=== PATIENT | female | born 1945 | race African-American/Black ===

== ENCOUNTER 2018-11-27 14:57 | Inpatient (IN) | payer OTHER ==
[~2018-11-27] VITALS: Ht 167.6 cm; Wt 76.2 kg
[2018-11-27] MEDS ORDERED: IPRATROPIUM/ALBUTEROL 0.5-3(2.5)MG/3ML NEB HHN ONE (15:45)
[2018-11-27] MEDS: METHYLPREDNISOLONE SOD SUCC 125 MG/2 ML VIAL IV STA ×2 (16:13→17:12)
[2018-11-27] MEDS: SODIUM CHLORIDE 0.9% 1,000 ML IV ONE ×2 (16:13→17:12)
[2018-11-27] MEDS: LEVOFLOXACIN 750MG PREMIX 150 ML IV ONE ×2 (16:13→17:12)
[2018-11-27] MEDS: LORAZEPAM 2MG/ML CPJ IV ONE ×2 (16:13→17:12)
[2018-11-27 16:57] LABS: CHLORIDE 101 mEq/L (98-107); HEMATOCRIT. 28.3 % (36.0-48.0); HEMOGLOBIN. 9.1 g/dL (12.0-16.0); MEAN CORPUSCULAR HEMOGLOBIN 31.6 pg (28.0-32.0); MEAN CORPUSCULAR VOLUME 98.1 fL (81.0-99.0); MEAN PLATELET VOLUME 7.2 fl (7.4-10.4); PLATELET 583 x1000/uL (130-400); RED BLOOD CELL COUNT 2.88 mill/uL (4.2-5.4); RED CELL DISTRIBUTION WIDTH 16.7 % (11.6-14.6)
[2018-11-27 17:00] LABS: INR 1.1; PARTIAL THROMBOPLASTIN TIME 24.5 sec (23.4-31.0); PROTHROMBIN TIME 11.5 sec (9.1-11.1)
[2018-11-27 17:08] LABS: CLARITY URINE TURBID (CLEAR); COLOR URINE YELLOW (YELLOW); KETONES URINE TRACE (NEGATIVE); LEUKOCYTE ESTERASE URINE 3+ (NEGATIVE); NITRITE URINE NEGATIVE (NEGATIVE); OCCULT BLOOD URINE 2+ (NEGATIVE); PH URINE 5.5 (4.5-8.0); PROTEIN URINE 2+ (NEGATIVE); SPECIFIC GRAVITY URINE 1.017 (1.005-1.030); UROBILINOGEN URINE 0.2 E.U./dL (0.2-1.0)
[2018-11-27 17:26] LABS: PLATELET ESTIMATE INCREASED
[2018-11-27] MEDS ORDERED: LORAZEPAM 2MG/ML CPJ IV ONE (17:45)
[2018-11-27] MEDS ORDERED: PIPERACILLIN/TAZ 3.375G PREMIX 50 ML IV ONE (18:30)
[2018-11-27] MEDS ORDERED: VANCOMYCIN 1 G PREMIX 200 ML IV SCH (18:30)
[2018-11-27] MEDS ORDERED: SODIUM CHLORIDE 0.9% 1,000 ML IV ONE (18:43)
[2018-11-27 23:00] VITALS: BP 130/88
[2018-11-28] VITALS (11 sets, daily range): BP systolic 83–129; BP diastolic 49–85
[2018-11-28] MEDS ORDERED: DEXTROSE 50% WATER 50ML SYRINGE IV PRN (04:30)
[2018-11-28] MEDS ORDERED: NA PHOS,M-B/NA PHOS,DI-BA ENEMA 118ML PR PRN (04:30)
[2018-11-28] MEDS ORDERED: PIPERACILLIN/TAZ 3.375G PREMIX 50 ML IV SCH ×2 (04:30→06:00)
[2018-11-28] MEDS ORDERED: CLONIDINE 0.1MG TABLET PO PRN (04:30)
[2018-11-28] MEDS ORDERED: MAGNESIUM/ALUMINUM HYDROXIDE/SIMETHICONE 30ML UDC PO PRN (04:30)
[2018-11-28] MEDS ORDERED: GUAIFENESIN 200MG/10ML SUGAR FREE UDC PO PRN (04:30)
[2018-11-28] MEDS ORDERED: NITROGLYCERIN 0.4MG TABLET SL SL PRN (04:30)
[2018-11-28] MEDS ORDERED: DOCUSATE SODIUM 100MG CAPSULE PO PRN (04:30)
[2018-11-28] MEDS ORDERED: ONDANSETRON HCL 4MG/2ML INJ IV PRN (04:30)
[2018-11-28] MEDS ORDERED: IPRATROPIUM/ALBUTEROL 0.5-3(2.5)MG/3ML NEB INH PRN (04:30)
[2018-11-28] MEDS ORDERED: ACETAMINOPHEN 325MG TABLET PO PRN (04:30)
[2018-11-28] MEDS: SODIUM CHLORIDE 0.9% 1,000 ML IV SCH ×2 (06:03→18:50)
[2018-11-28] MEDS: BLOOD SUGAR DIAGNOSTIC STRIP TEST SCH ×4 (08:16→21:33)
[2018-11-28] MEDS ORDERED: LORAZEPAM 2MG/ML CPJ IV NR (08:45)
[2018-11-28 08:51] LABS: HEMATOCRIT. 26.8 % (36.0-48.0); HEMOGLOBIN. 8.7 g/dL (12.0-16.0); MEAN CORPUSCULAR HEMOGLOBIN 31.7 pg (28.0-32.0); MEAN CORPUSCULAR VOLUME 97.8 fL (81.0-99.0); MEAN PLATELET VOLUME 7.2 fl (7.4-10.4); PLATELET 553 x1000/uL (130-400); RED BLOOD CELL COUNT 2.73 mill/uL (4.2-5.4); RED CELL DISTRIBUTION WIDTH 16.8 % (11.6-14.6)
[2018-11-28] MEDS: ENOXAPARIN 40MG/0.4ML SYR SUBCUT SCH (09:00)
[2018-11-28 09:05] LABS: CHLORIDE 108 mEq/L (98-107)
[2018-11-28 09:12] LABS: LDL CHOLESTEROL 73 mg/dL (5-100)
[2018-11-28 09:13] LABS: TOTAL IRON BINDING CAPACITY 170 ug/dL (250-450)
[2018-11-28 09:14] LABS: HDL CHOLESTEROL 50 mg/dL (40-59)
[2018-11-28 09:15] LABS: CREATINE KINASE 109 IU/L (26-192); CREATINE KINASE MB FRACTION 1.8 ng/mL (0.5-3.6)
[2018-11-28 09:43] LABS: FOLIC ACID (FOLATE) SERUM 8.8 ng/mL (>5.38)
[2018-11-28] MEDS: ZINC SULFATE 220 MG ( 50 ) CAPSULE PO SCH (10:10)
[2018-11-28] MEDS: ASCORBIC ACID 500 MG TABLET PO SCH ×2 (10:10→22:09)
[2018-11-28] MEDS: FAMOTIDINE 20MG TABLET PO SCH ×2 (10:10→22:09)
[2018-11-28] MEDS: INSULIN LISPRO 100 UNITS/ML SUBCUT SCH ×4 (10:11→21:00)
[2018-11-28] MEDS ORDERED: SODIUM POLYSTYRENE SULFONATE 15 G/60 ML BOT PO NR (10:15)
[2018-11-28] MEDS: VANCOMYCIN 1 G PREMIX 200 ML IV SCH (10:15)
[2018-11-28] MEDS ORDERED: MEROPENEM 1000MG in NORMAL SALINE 100ML IV SCH (13:00)
[2018-11-28 13:31] LABS: PLATELET ESTIMATE INCREASED
[2018-11-28] MEDS ORDERED: SODIUM POLYSTYRENE SULFONATE 15 G/60 ML BOT PR NR (14:00)
[2018-11-28 17:33] LABS: CREATINE KINASE 139 IU/L (26-192)
[2018-11-28 17:34] LABS: CREATINE KINASE MB FRACTION 1.5 ng/mL (0.5-3.6)
[2018-11-28] MEDS: MEROPENEM 1000MG in NORMAL SALINE 100ML IV SCH (22:10)
[2018-11-28] MEDS: LORAZEPAM 2MG/ML CPJ IV PRN (22:26)
[2018-11-29] VITALS (15 sets, daily range): BP systolic 102–149; BP diastolic 45–88
[2018-11-29] MEDS: VANCOMYCIN 1 G PREMIX 200 ML IV SCH (01:39)
[2018-11-29] MEDS: MEROPENEM 1000MG in NORMAL SALINE 100ML IV SCH ×2 (05:13→14:07)
[2018-11-29] MEDS: LORAZEPAM 2MG/ML CPJ IV PRN (06:31)
[2018-11-29] MEDS: INSULIN LISPRO 100 UNITS/ML SUBCUT SCH ×2 (08:00→13:00)
[2018-11-29] MEDS: BLOOD SUGAR DIAGNOSTIC STRIP TEST SCH ×2 (08:21→12:30)
[2018-11-29] MEDS: ZINC SULFATE 220 MG ( 50 ) CAPSULE PO SCH (08:52)
[2018-11-29] MEDS: ASCORBIC ACID 500 MG TABLET PO SCH (08:53)
[2018-11-29] MEDS: FAMOTIDINE 20MG TABLET PO SCH (08:53)
[2018-11-29] MEDS: ENOXAPARIN 40MG/0.4ML SYR SUBCUT SCH (09:03)
[2018-11-29] MEDS: SODIUM CHLORIDE 0.9% 1,000 ML IV SCH (09:30)
[2018-11-29] MEDS ORDERED: MORPHINE SULFATE 10 MG/ML CPJ IV PRN (09:45)
[2018-11-29 10:33] LABS: HEMATOCRIT. 26.6 % (36.0-48.0); HEMOGLOBIN. 8.4 g/dL (12.0-16.0); MEAN CORPUSCULAR HEMOGLOBIN 31.6 pg (28.0-32.0); MEAN CORPUSCULAR VOLUME 100.2 fL (81.0-99.0); PLATELET 470 x1000/uL (130-400); RED BLOOD CELL COUNT 2.65 mill/uL (4.2-5.4); RED CELL DISTRIBUTION WIDTH 16.8 % (11.6-14.6)
[2018-11-29 10:38] LABS: CHLORIDE 112 mEq/L (98-107)
[2018-11-29 14:24] LABS: PLATELET ESTIMATE INCREASED
[2018-11-29] MEDS ORDERED: MORPHINE SULFATE 4 MG/ML CPJ (NOT FOR IM USE) IV ONE (15:32)
[2018-11-29] MEDS ORDERED: MORPHINE SULFATE 2 MG/ML CPJ (NOT FOR IM USE) IV ONE (15:45)
[2018-11-29] MEDS ORDERED: MORPHINE SULFATE 10 MG/ML CPJ IV NR (15:46)
== END 2018-11-29 15:55 | disposition short-term general hospital (02) | DRG 871 ==
LOC: ER 15:18 → 5EST 18:21 → EDBEDREQSVC 18:22 → EDBEDREQ 18:22 → ENRESERV 20:26
PROVIDERS: ADMIT Internal Medicine; ATTEND Internal Medicine
DX: A41.9 Sepsis, unspecified organism (principal); E43 Unspecified severe protein-calorie malnutrition; G92 Toxic encephalopathy; E87.1 Hypo-osmolality and hyponatremia; J44.1 Chronic obstructive pulmonary disease with (acute) exacerbation; N39.0 Urinary tract infection, site not specified; C49.22 Malignant neoplasm of connective and soft tissue of left lower limb, including hip; C50.919 Malignant neoplasm of unspecified site of unspecified female breast; D63.8 Anemia in other chronic diseases classified elsewhere; E11.9 Type 2 diabetes mellitus without complications; E83.51 Hypocalcemia; E87.5 Hyperkalemia; L89.890 Pressure ulcer of other site, unstageable; J33.8 Other polyp of sinus; J34.1 Cyst and mucocele of nose and nasal sinus; G31.9 Degenerative disease of nervous system, unspecified; L89.322 Pressure ulcer of left buttock, stage 2; F03.90 Unspecified dementia, unspecified severity, without behavioral disturbance, psychotic disturbance, mood disturbance, and anxiety; R65.20 Severe sepsis without septic shock; Z79.4 Long term (current) use of insulin; Z85.3 Personal history of malignant neoplasm of breast; Z87.891 Personal history of nicotine dependence; Z68.27 Body mass index [BMI] 27.0-27.9, adult; Z88.8 Allergy status to other drugs, medicaments and biological substances; Z88.1 Allergy status to other antibiotic agents
CPT/HCPCS: 36415; 70551; 71045; 80048; 80061; 82550; 82553; 82607; 82746; 82962; 83036; 83540; 83550; 83605; 83735; 83880; 84134; 84484; 85007; 85027; 85379; 87077; 87186; 93005; 96365; 96366; 96367; 96375; 99291; J1650; J1815; J1956; J2060; J2185; J2270; J2543; J2930; J3370; J7030; J7050; A4315